=== PATIENT | male | born 1990 | race Two or more races ===

== ENCOUNTER 2021-10-05 12:11 | Emergency (ER) | payer MEDICAID ==
[~2021-10-05] VITALS: Ht 165.1 cm; Wt 117.9 kg
[2021-10-05 12:12] VITALS: BP 124/82
== END 2021-10-05 15:48 | disposition left against medical advice (07) ==
LOC: ER 12:11
DX: Z48.02 Encounter for removal of sutures (principal); Z53.21 Procedure and treatment not carried out due to patient leaving prior to being seen by health care provider